=== PATIENT | female | born 1960 | race Caucasian/White ===

== ENCOUNTER 2020-02-17 13:20 | Emergency (ER) | payer OTHER ==
[~2020-02-17] VITALS: Ht 162.6 cm; Wt 72.6 kg
[~2020-02-17 13:20] MED LIST: DIOVAN; ESTROGEN PATCH; LEVO100T PO; [UNRECOGNIZED DRUG - OTHER]
[2020-02-17 13:24] VITALS: BP_SYST 143
--- NOTE | 2020-02-17 13:27 | NUR ---
ambulated to bed 8
--- NOTE | 2020-02-17 13:31 | NUR ---
Pt came to ER after bumping R elbow yesterday while cleaning house. Pt rates pain 9/10, redness, swelling. Pt took Tylenol w/Codeine this morning at 0830 and pain returned.
--- NOTE | 2020-02-17 13:36 | NUR ---
ER at bedside examining patient.
[2020-02-17 14:46] VITALS: BP_SYST 143
--- NOTE | 2020-02-17 14:49 | NUR ---
Patient given written and verbal discharge instructions and verbalizes understanding. ER MD discussed with patient the results and treatment provided. Patient in stable condition. ID arm band removed. Patient educated on pain management and to follow up with PMD. Pain Scale 0/10. Opportunity for questions provided and answered. Medication side effect fact sheet provided.
== END 2020-02-17 14:49 | disposition home or self-care (01) ==
LOC: SED 13:20
DX: S59.901A Unspecified injury of right elbow, initial encounter (principal); Z79.899 Other long term (current) drug therapy; X58.XXXA Exposure to other specified factors, initial encounter; Y93.89 Activity, other specified; Y92.89 Other specified places as the place of occurrence of the external cause; Y99.8 Other external cause status
CPT/HCPCS: 99283